=== PATIENT | female | born 1990 | race African-American/Black ===

== ENCOUNTER 2018-10-25 22:04 | Emergency (ER) | payer MEDICAID ==
[~2018-10-25] VITALS: Ht 170.2 cm; Wt 66.0 kg
[2018-10-25] MEDS ORDERED: MORPHINE SULFATE 4 MG/ML CPJ (NOT FOR IM USE) IV STA (22:27)
[2018-10-25] MEDS ORDERED: SODIUM CHLORIDE 0.9% 1,000 ML IV ONE (22:27)
[2018-10-25] MEDS ORDERED: ONDANSETRON HCL 4MG/2ML INJ IV STA (22:27)
[2018-10-25] MEDS ORDERED: CEFAZOLIN 1000MG PREMIX 50 ML IV ONE (22:30)
[2018-10-25 22:53] LABS: BASOPHILS % 0.4 % (0.0-2.0); EOSINOPHILS % 1.3 % (0.0-5.0); HEMOGLOBIN. 14.9 g/dL (12.0-16.0); LYMPHOCYTES % 39.9 % (20.0-50.0); MEAN CORPUSCULAR VOLUME 92.5 fL (81.0-99.0); MEAN PLATELET VOLUME 7.5 fl (7.4-10.4); MONOCYTES % 5.7 % (2.0-8.0); NEUTROPHILS % 52.7 % (40.0-76.0); PLATELET 250 x1000/uL (130-400); RED BLOOD CELL COUNT 4.65 mill/uL (4.2-5.4); RED CELL DISTRIBUTION WIDTH 12.7 % (11.6-14.6)
[2018-10-25 22:59] LABS: CHLORIDE 105 mEq/L (98-107)
[2018-10-25] MEDS ORDERED: PHENYTOIN SODIUM 1,000 MG in SODIUM CHLORIDE 0.9% 100 ML IV ONE (23:15)
[2018-10-25] MEDS ORDERED: LORAZEPAM 2MG/ML CPJ IV ONE (23:15)
[2018-10-25 23:52] VITALS: BP 98/61
== END 2018-10-26 00:14 | disposition short-term general hospital (02) ==
LOC: EDBD 22:04 → ER 22:04
DX: S02.0XXB Fracture of vault of skull, initial encounter for open fracture (principal); S06.370A Contusion, laceration, and hemorrhage of cerebellum without loss of consciousness, initial encounter; R56.1 Post traumatic seizures; X95.9XXA Assault by unspecified firearm discharge, initial encounter; D72.829 Elevated white blood cell count, unspecified; Y93.89 Activity, other specified; Y92.410 Unspecified street and highway as the place of occurrence of the external cause
CPT/HCPCS: 36415; 70450; 71045; 80053; 85025; 86850; 86900; 86901; 96365; 96375; 99285; J0690; J1165; J2060; J2270; J2405; J7030; J7050